=== PATIENT | male | born 1990 | race Two or more races ===

== ENCOUNTER 2023-08-03 10:52 | Emergency (ER) | payer OTHER ==
[~2023-08-03] VITALS: Ht 172.7 cm; Wt 86.2 kg
== END 2023-08-03 13:54 | disposition home or self-care (01) ==
LOC: ER 10:52
DX: S61.220A Laceration with foreign body of right index finger without damage to nail, initial encounter (principal); W26.0XXA Contact with knife, initial encounter; Y93.89 Activity, other specified; Y92.89 Other specified places as the place of occurrence of the external cause